=== PATIENT | male | born 1985 | race African-American/Black ===

== ENCOUNTER 2017-12-31 14:31 | Emergency (ER) | payer MEDICAID ==
[~2017-12-31] VITALS: Ht 175.3 cm; Wt 86.0 kg
[2017-12-31] MEDS ORDERED: SODIUM CHLORIDE 0.9% 1,000 ML IV ONE (15:03)
[2017-12-31 15:16] VITALS: BP 114/76
[2017-12-31 15:42] LABS: EOSINOPHILS % 0.2 % (0.0-5.0); HEMATOCRIT. 47.5 % (42.0-52.0); HEMOGLOBIN. 15.6 g/dL (14.0-18.0); LYMPHOCYTES % 26.6 % (20.0-50.0); MEAN CORPUSCULAR HEMOGLOBIN 25.4 pg (28.0-32.0); MEAN CORPUSCULAR VOLUME 77.4 fL (80.0-94.0); MEAN PLATELET VOLUME 7.9 fl (7.4-10.4); NEUTROPHILS % 61.2 % (40.0-76.0); PLATELET 293 x1000/uL (130-400); RED BLOOD CELL COUNT 6.14 mill/uL (4.7-6.1); RED CELL DISTRIBUTION WIDTH 16.2 % (11.6-14.6)
[2017-12-31 15:49] LABS: CHLORIDE 103 mEq/L (98-107)
[2017-12-31 15:57] LABS: CREATINE KINASE 168 IU/L (39-308)
[2017-12-31 16:02] LABS: VALPROIC ACID < 3.0 ug/mL (50-100)
== END 2017-12-31 17:10 | disposition home or self-care (01) ==
LOC: ER 14:36
DX: R53.1 Weakness (principal); G40.909 Epilepsy, unspecified, not intractable, without status epilepticus; F98.8 Other specified behavioral and emotional disorders with onset usually occurring in childhood and adolescence; F12.10 Cannabis abuse, uncomplicated; F17.200 Nicotine dependence, unspecified, uncomplicated
CPT/HCPCS: 36415; 80053; 80165; 82550; 85025; 93005; 99285; J7030